=== PATIENT | male | born 1945 | race Caucasian/White ===

== ENCOUNTER → 2017-03-07 | Outpatient (CLI) | payer MEDICARE, BC | END | disposition home or self-care (01) | LOC: GMAH 10:29 | PROVIDERS: ATTEND Family Medicine | DX: E03.9 Hypothyroidism, unspecified (principal) ==

== ENCOUNTER → 2017-03-09 | Outpatient (CLI) | payer MEDICARE, BC ==
--- NOTE | 2017-03-09 20:25 | MRI ---
EXAM DESCRIPTION: Cervical Spine w/wo Contrast CLINICAL HISTORY: Multiple sclerosis. Follow-up. COMPARISON: MRI cervical spine 03/19/2015 TECHNIQUE: Pre and postcontrast MRI of the cervical spine is performed according to our usual protocol. FINDINGS: There is good alignment of the cervical spine. Vertebral body stature is maintained. There is no acute fracture or destructive osseous lesion. No abnormal marrow enhancement. Again demonstrated is a T2 hyperintensity in the right lateral aspect of the cervical spinal cord centered at the C4-C5 level. This measures about 21 mm in craniocaudal extent, unchanged compared to the prior exam. There is no abnormal enhancement on postcontrast imaging. C2-3: No significant findings. C3-4: Mild disc desiccation. Mild facet hypertrophy and mild uncovertebral spurring. 2 mm posterior disc osteophyte complex. Moderate bilateral neural foraminal stenosis is again demonstrated. Flattening of the ventral aspect of the thecal sac with mild spinal canal stenosis. Residual AP diameter of the thecal sac is 8.7 mm. C4-5: Disc desiccation. Disc height is preserved. Moderate left and mild right facet hypertrophy. 1.5 mm posterior disc osteophyte complex with minimal spinal canal stenosis. Residual AP diameter of the thecal sac is 9 mm. Moderate left and mild right neural foraminal stenosis. C5-6: Disc desiccation with moderate disc narrowing. Mild facet hypertrophy and mild uncovertebral spurring. 2.5 mm posterior disc osteophyte complex. Mild to moderate spinal canal stenosis with residual AP diameter of the thecal sac measuring 7.8 mm. Moderate bilateral neural foraminal stenosis. C6-7: Disc desiccation with moderate disc narrowing. Mild facet hypertrophy and left greater than right uncovertebral spurring. Flattening of the ventral aspect of the thecal sac with mild to moderate spinal canal stenosis. Residual AP diameter of the thecal sac is 7.5 mm. Moderate left and mild right neural foraminal stenosis. C7-T1: No significant findings. IMPRESSION: 1. Unchanged MRI of the cervical spine. There is a T2 hyperintensity in the cervical spinal cord centered at the C4-C5 level without enhancement. This is compatible with the reported history of multiple sclerosis. 2. Multilevel disc degeneration and facet degenerative changes as described above. These appear grossly stable compared to the prior exam. At C5-C6 and C6-C7, mild to moderate spinal canal stenosis is demonstrated. 3. Other levels as detailed above. Electronically signed by: Jigar Ontiveros MD 03/09/2017 8:25 PM CDT Workstation: [id number]
--- NOTE | 2017-03-09 20:27 | MRI ---
EXAM DESCRIPTION: Brain w/wo Contrast CLINICAL HISTORY: Follow up for multiple sclerosis. COMPARISON: MRI brain 02/23/2016 TECHNIQUE: Pre and postcontrast MRI of the brain is performed according to our usual protocol including multiplanar multi sequence technique. FINDINGS: No hemorrhage, mass effect, diffusion restriction, or acute infarction is present. Mild generalized volume loss is again demonstrated. A few scattered T2/FLAIR hyperintensities are demonstrated in the supratentorial white matter. A few of these are in the periventricular regions. These are grossly stable in size and number compared to the prior exam. There is no abnormal parenchymal or leptomeningeal enhancement. No abnormal extra-axial fluid collections are present. Normal flow voids are present. The calvarium is intact. Visualized paranasal sinuses and mastoid air cells are clear. IMPRESSION: 1. No acute intracranial abnormality. 2. Stable mild scattered T2/FLAIR hyperintensities in the supratentorial white matter. These may represent a combination of microangiopathy and demyelinating plaques given the reported history of multiple sclerosis. 3. No abnormal enhancement. Electronically signed by: Jigar Ontiveros MD 03/09/2017 8:26 PM CDT Workstation: [id number]
== END | disposition home or self-care (01) ==
LOC: MRI 07:48
PROVIDERS: ATTEND Psychiatry & Neurology Neurology
DX: G35 Multiple sclerosis (principal)

== ENCOUNTER → 2017-09-21 | Outpatient (CLI) | payer MEDICARE | END | disposition home or self-care (01) | LOC: LAB.O 15:49 | PROVIDERS: ATTEND Psychiatry & Neurology Neurology | DX: I67.9 Cerebrovascular disease, unspecified (principal); F90.9 Attention-deficit hyperactivity disorder, unspecified type; G35 Multiple sclerosis; M54.81 Occipital neuralgia; M54.12 Radiculopathy, cervical region ==

== ENCOUNTER → 2018-02-22 | Outpatient (CLI) | payer MEDICARE ==
--- NOTE | 2018-02-22 16:57 | MRI ---
EXAM DESCRIPTION: Brain w/wo Contrast: Magnetic Resonance Imaging. CLINICAL HISTORY: MS COMPARISON: MRI scan of the brain without and with gadolinium IV contrast excreted 2016. MRI scan of the cervical spine with and without gadolinium IV contrast on this visit. TECHNIQUE: Multiplanar, high-field MRI, multiple conventional sequences, without and with gadolinium IV contrast. No adverse reactions. Multiple axial diffusion sequences. FINDINGS: Small foci of hyperintense FLAIR and T2-weighted signal in the periventricular white matter and gupta-white matter junctions of the cerebral hemispheres. . More left than right and stable since the prior study. Similar signal in the posterior right basal ganglia and anterior and posterior left basal ganglia. No hemorrhage, no cerebral edema, no mass-effect. Normal contrast enhancement. Normal signal in the brainstem and cerebellar hemispheres. No hemorrhage, no cerebral edema, no mass-effect. Normal contrast enhancement. Concordance of the diffusion and non-diffusion sequences with no evidence of acute or subacute infarction. Cortical sulci, ventricles, and other CSF spaces, and the subdural spaces are normally configured for patients age. No effacement or displacement. No midline shift. No extra-axial hemorrhage. Normal contrast enhancement. Normal flow signal void in the major vessels of the [place], and the venous sinuses. IACs are symmetric bilaterally. Normal signal in the bilateral mastoid air cells. No mass effect in the bilateral Cerebellopontine angles. Normal contrast enhancement. Pituitary gland occupies most of the sella. Normal contrast enhancement. Base of the cerebellar tonsils is at the level of the foramen magnum. Minimal mucoperiosteal thickening with normal enhancement in the paranasal sinuses. The bony calvarium is intact. IMPRESSION: 1. Focal white matter lesions and basal ganglia lesions are stable since the prior study and could be related to cerebral microvascular disease, aging brain changes, or demyelinating process such as multiple sclerosis, given the history. Stable since the prior study. No diffusion restriction. 2. Normal noncontrast MRI diffusion study with no evidence of acute or subacute infarction. Electronically signed by: Sterling Villaseñor MD 02/22/2018 4:55 PM CDT
--- NOTE | 2018-02-22 20:41 | MRI ---
EXAM DESCRIPTION: Cervical Spine w/wo Contrast: MRI. CLINICAL HISTORY: MS COMPARISON: MRI scan cervical spine without and with gadolinium IV contrast 03/09/2017. TECHNIQUE: Multiplanar MRI, multiple sequences, without and with gadolinium IV contrast High-field. FINDINGS: Right T2 and inversion recovery signal is noted in the central cord and the right side of the cord beginning at the C3-4 disc space level and extending to the level of the inferior C5 endplate. There is also minimal decrease in AP diameter of the cord to the right of midline at this level. This can be seen on the prior study and there is no significant change. No contrast enhancement within this abnormal signal. Normal signal in the remainder of the cord and normal enhancement. Stable disc desiccation C3-4 with minimal posterior bulge. Uncinate spur on the right with borderline foraminal stenosis. Flavum ligament hypertrophy. Left neuroforamen patent with mild to moderate canal narrowing. Bilateral facets negative. Stable since the prior study. C4-5: Disc desiccation posterior midline bulge. Minimal posterior ligament hypertrophy. Mild canal and right neural foraminal narrowing. Left facet arthrosis. Moderate severe left neural foraminal narrowing. Stable since the prior study. C5-6: Disc desiccation posterior broad-based disc bulge and hypertrophy of the posterior ligaments. Posterior broad-based bulge abutting the cord. Moderate canal narrowing. Bilateral uncinate spurs. Normal right facet with left facet arthrosis. Mild right neural foraminal narrowing and moderate left neural foraminal narrowing. Stable since the prior study. C6-7: Disc desiccation posterior midline disc protrusion with annular fissure impressing the cord. Posterior ligaments abutting the posterior cord with borderline canal stenosis. Facets are negative. Mild right neural foraminal narrowing and moderate left neural foraminal narrowing. Stable since the prior study. Normal signal in the remaining discs with no bulging. Disc spaces preserved. Canal and neural foramina are patent. Facets unremarkable No scoliosis. Spine is excessively lordotic but stable.. No cord compression or cord edema. Atlantoaxial joint is unremarkable.. Base of the cerebellar tonsils is at the level of the foramen magnum. Paravertebral soft tissues are unremarkable. Vertebral bodies are not compressed at any level. Normal marrow signal in the remaining vertebral bodies and the posterior elements. IMPRESSION: 1. Increased signal in the central cord extending to the right lateral cord from the C3-4 disc space to the inferior C5 endplate. Minimal narrowing of the cord to the right of midline. No enhancement. This is consistent with an inactive demyelinating lesion of multiple sclerosis. Stable since the prior study. 2. Borderline right neural foraminal stenosis C3-4 stable since the prior study. 3. Moderate to severe left neural foraminal narrowing at C4-5 and left facet arthrosis. Stable since the prior study. 4. Small posterior protrusion of the C6-7 disc with annular fissure and borderline canal stenosis. Moderate left neural foraminal narrowing. Stable since the prior study. 5. Posterior broad-based C5-6 disc bulge and moderate left neural foraminal narrowing and left facet arthrosis. Stable since the prior study. Electronically signed by: Sterling Villaseñor MD 02/22/2018 8:40 PM CDT
== END ==
LOC: MRI 08:00
PROVIDERS: ATTEND Psychiatry & Neurology Neurology
DX: Z01.812 Encounter for preprocedural laboratory examination (principal); G35 Multiple sclerosis; G60.3 Idiopathic progressive neuropathy; M48.02 Spinal stenosis, cervical region; M50.222 Other cervical disc displacement at C5-C6 level

== ENCOUNTER → 2018-03-14 | Outpatient (CLI) | payer MEDICARE | LOC: GMAH 10:44 | PROVIDERS: ATTEND Family Medicine | DX: I10 Essential (primary) hypertension (principal); E03.9 Hypothyroidism, unspecified; Z12.5 Encounter for screening for malignant neoplasm of prostate | CPT/HCPCS: 84443; 84550; G0103 ==

== ENCOUNTER → 2019-05-16 | Outpatient (CLI) | payer MEDICARE | LOC: MRI 09:00 | PROVIDERS: ATTEND Psychiatry & Neurology Neurology | DX: G35 Multiple sclerosis (principal); I10 Essential (primary) hypertension; M50.921 Unspecified cervical disc disorder at C4-C5 level; M50.922 Unspecified cervical disc disorder at C5-C6 level; M50.923 Unspecified cervical disc disorder at C6-C7 level; M48.02 Spinal stenosis, cervical region ==

== ENCOUNTER → 2019-09-24 | Outpatient (CLI) | payer MEDICARE | LOC: GMA MATASK 10:35 | PROVIDERS: ATTEND Family Medicine | DX: E03.9 Hypothyroidism, unspecified (principal); I10 Essential (primary) hypertension ==

== ENCOUNTER → 2020-04-02 | Outpatient (CLI) | payer MEDICARE ==
--- NOTE | 2020-04-06 09:48 | CT ---
EXAM DESCRIPTION: Chest w/o Contrast : Computed Tomography. CLINICAL HISTORY: 75 years Male LATENT TUBERCULOSIS COMPARISON: None available. TECHNIQUE: Spiral-axial scans at 5 x 5 mm intervals through the lungs and thorax without IV contrast. 2.5 x 5 mm lung algorithm axial reconstructions. Coronal and sagittal 2.0 Mm reconstructions. No adverse reactions. Total Exam DLP: 312 mGy-cm. This exam was performed according to our departmental dose-optimization program which includes automated exposure control, adjustment of the mA and/or kV according to patient size and/or use of iterative reconstruction technique; to reduce radiation dose to as low as reasonably achievable (ALARA). Nodule measurements under 10 mm are given as mean value of 3 axes diameters. FINDINGS: Lungs and large airways: Bilateral scattered parenchymal blebs and occasional bulla bilaterally. No abnormal nodules or masses. No focal infiltrates. No parenchymal calcifications. Mild air trapping. Pleural spaces: Sporadic thickening; no effusion or pneumothorax. Mediastinum and Anali: Evaluation limited due to lack of IV contrast small normal-sized lymph nodes with no dominant soft tissue mass. Great vessels and Heart: Evaluation limited due to lack of IV contrast. Minimal coronary artery calcification. Minimal atherosclerotic calcification in the thoracic aorta. Aneurysm of the ascending aorta measure 4.1 cm and 3.2 cm at the origin of the right innominate artery. Soft tissues of neck base, axillae, and chest wall: Evaluation limited due to lack of IV contrast. Normal size lymph nodes no dominant soft tissue masses. Upper abdomen: No free fluid or free air. Calcifications. Osseous structures: Minimal spondylosis mid and upper thoracic spine. Bilateral glenohumeral and sternoclavicular arthrosis. IMPRESSION: 1. Mild air trapping in the lungs bilaterally. Emphysematous changes bilaterally in the upper and lower lung zones. No nodules, no mass, no focal infiltrates. No nodules. No adenopathy or abnormal calcifications in the mediastinum and anali. 2. Aneurysm of the ascending thoracic aorta 4.2 cm. Consider CTA and cardiovascular consult. Electronically signed by: Sterling Villaseñor MD 04/06/2020 9:46 AM CDT
== END ==
LOC: LAB.O 10:13
PROVIDERS: ATTEND Psychiatry & Neurology Neurology
DX: Z22.7 Latent tuberculosis (principal); J98.4 Other disorders of lung; J43.9 Emphysema, unspecified; I71.2 Thoracic aortic aneurysm, without rupture; G35 Multiple sclerosis; M79.18 Myalgia, other site; Z79.899 Other long term (current) drug therapy

== ENCOUNTER → 2020-09-28 | Outpatient (CLI) | payer MEDICARE | LOC: GMAM 16:16 | PROVIDERS: ATTEND Family Medicine | DX: E03.9 Hypothyroidism, unspecified (principal); I10 Essential (primary) hypertension ==